=== PATIENT | female | born 1975 | race Caucasian/White ===

== ENCOUNTER → 2021-02-24 | Outpatient (CLI) | payer BC ==
[~2021-02-24] MED LIST: DEPO-PROVER150 MG/M1 IM; LORTAB 5/500 501 TAB PO; NO HOME MEDICATIONS
== END ==
LOC: MC.RAD 11:00
DX: Z12.31 Encounter for screening mammogram for malignant neoplasm of breast (principal)

== ENCOUNTER → 2023-11-08 | Outpatient (CLI) | payer BC | LOC: MC.RAD 08:10 | DX: Z12.31 Encounter for screening mammogram for malignant neoplasm of breast (principal) ==